=== PATIENT | male | born 1965 | race African-American/Black ===

== ENCOUNTER 2018-07-12 20:51 | Emergency (ER) | payer OTHER ==
[~2018-07-12] VITALS: Ht 172.7 cm; Wt 81.0 kg
[2018-07-12] MEDS ORDERED: IBUPROFEN 800MG TABLET PO ONE (22:45)
[2018-07-12] MEDS ORDERED: BACITRACIN ZINC OINT UDPKT TOP ONE (23:15)
[2018-07-13 00:03] VITALS: BP 162/98
== END 2018-07-13 00:05 | disposition home or self-care (01) ==
LOC: ER 20:51
DX: S80.12XA Contusion of left lower leg, initial encounter (principal); J45.909 Unspecified asthma, uncomplicated; V03.99XA Pedestrian with other conveyance injured in collision with car, pick-up truck or van, unspecified whether traffic or nontraffic accident, initial encounter; Y93.01 Activity, walking, marching and hiking; Y92.89 Other specified places as the place of occurrence of the external cause; Y99.8 Other external cause status
CPT/HCPCS: 73590; 99283